=== PATIENT | male | born 1990 | race Caucasian/White ===

== ENCOUNTER 2017-07-18 22:27 | Emergency (ER) | payer SELFPAY ==
[~2017-07-18] VITALS: Ht 165.1 cm; Wt 58.1 kg
[2017-07-18 23:50] VITALS: BP_SYST 134
[2017-07-19 00:49] LABS: HEMATOCRIT 49.7 % (36-54); HEMOGLOBIN 16.7 g/dL (14.0-18.0); LYMPHOCYTES # (AUTO) 1.3 K/uL (1.0-5.5); MEAN CORPUSCULAR HEMOGLOBIN 31 pg (27-31); MEAN CORPUSCULAR HGB CONC 34 % (32-36); MEAN CORPUSCULAR VOLUME 92 fL (79.0-98.0); WHITE BLOOD COUNT (AUTO) 8.8 K/uL (4.8-10.8)
[2017-07-19 00:59] LABS: ANION GAP 10 (5-15); BASOPHILS # (AUTO) 0.1 K/uL (0.0-0.2); BASOPHILS % (AUTO) 1.2 % (0.0-2.0); CHLORIDE 101 mmol/L (98-107); CREATININE 0.87 mg/dL (0.55-1.30); EOSINOPHILS # (AUTO) 0.1 K/uL (0.0-0.4); EOSINOPHILS % (AUTO) 0.6 % (0.0-4.0); GFR AFRICAN AMERICAN 138 mL/min (>90); GLUCOSE 105 mg/dL (70-99); LYMPHOCYTES % (AUTO) 14.8 % (20.5-51.5); MONOCYTES # (AUTO) 0.7 K/uL (0.0-1.0); MONOCYTES % (AUTO) 8.5 % (1.7-9.3); NEUTROPHILS # (AUTO) 6.6 K/uL (1.8-7.7); NEUTROPHILS % (AUTO) 74.9 % (40.0-70.0); POTASSIUM 3.6 mmol/L (3.5-5.1); RED BLOOD CELL COUNT(AUTO) 5.39 MIL/uL (4.2-6.2); SODIUM SERUM 138 mmol/L (136-145); UREA NITROGEN, BLOOD 11 mg/dL (8-21)
[2017-07-19 01:03] LABS: ALANINE AMINOTRANSFERASE 32 U/L (12-78); ALBUMIN 4.8 g/dL (3.4-4.8); ASPARTATE AMINOTRANSFERASE 22 U/L (10-37); TOTAL BILIRUBIN 0.6 mg/dL (0.0-1.0)
[2017-07-19 01:06] LABS: ALCOHOL, BLOOD < 3 mg/dL (<10)
[2017-07-19 01:22] LABS: PLATELET COUNT (AUTO) 311 K/uL (130-430)
== END 2017-07-19 02:15 | disposition left against medical advice (07) ==
LOC: SED 22:27
DX: R40.4 Transient alteration of awareness (principal); F17.200 Nicotine dependence, unspecified, uncomplicated; Z53.20 Procedure and treatment not carried out because of patient's decision for unspecified reasons
CPT/HCPCS: 36415; 80053; 85025; 99284; G0482

== ENCOUNTER 2018-10-16 13:35 | Emergency (ER) | payer MEDICAID ==
[~2018-10-16] VITALS: Ht 165.1 cm; Wt 59.0 kg
[2018-10-16 13:57] VITALS: BP_SYST 118
[2018-10-16 15:03] VITALS: BP_SYST 123
== END 2018-10-16 15:08 | disposition home or self-care (01) ==
LOC: SED 13:35
DX: J20.9 Acute bronchitis, unspecified (principal); F17.210 Nicotine dependence, cigarettes, uncomplicated; Z71.6 Tobacco abuse counseling
CPT/HCPCS: 71045; 99283

== ENCOUNTER 2019-11-24 15:06 | Emergency (ER) | payer MEDICAID ==
[~2019-11-24] VITALS: Ht 165.1 cm; Wt 68.0 kg
[2019-11-24 15:14] VITALS: BP_SYST 145
[2019-11-24 15:35] VITALS: BP_SYST 138
== END 2019-11-24 15:35 | disposition home or self-care (01) ==
LOC: SED 15:06
DX: Z00.00 Encounter for general adult medical examination without abnormal findings (principal); R44.0 Auditory hallucinations; R03.0 Elevated blood-pressure reading, without diagnosis of hypertension
CPT/HCPCS: 99281

== ENCOUNTER 2020-02-23 19:43 | Emergency (ER) | payer MEDICAID ==
[~2020-02-23] VITALS: Ht 165.1 cm; Wt 59.9 kg
[2020-02-23 20:32] VITALS: BP_SYST 115
[2020-02-23 22:15] LABS: CALCIUM 8.5 mg/dL (8.4-11.0); CREATININE 1.08 mg/dL (0.55-1.30); POTASSIUM 3.4 mmol/L (3.5-5.1)
[2020-02-23 22:17] LABS: BASOPHILS % (AUTO) 0.8 % (0.0-2.0); EOSINOPHILS # (AUTO) 0.1 K/uL (0.0-0.4); EOSINOPHILS % (AUTO) 1.5 % (0.0-4.0); HEMATOCRIT 46.2 % (36-54); HEMOGLOBIN 15.9 g/dL (14.0-18.0); LYMPHOCYTES # (AUTO) 2.3 K/uL (1.0-5.5); LYMPHOCYTES % (AUTO) 35.5 % (20.5-51.5); MEAN CORPUSCULAR HEMOGLOBIN 31 pg (27-31); MEAN CORPUSCULAR HGB CONC 35 % (32-36); MEAN CORPUSCULAR VOLUME 90 fL (79.0-98.0); MONOCYTES # (AUTO) 0.5 K/uL (0.0-1.0); MONOCYTES % (AUTO) 8.3 % (1.7-9.3); NEUTROPHILS # (AUTO) 3.4 K/uL (1.8-7.7); NEUTROPHILS % (AUTO) 53.9 % (40.0-70.0); PLATELET COUNT (AUTO) 288 K/uL (130-430); RED BLOOD CELL COUNT(AUTO) 5.15 MIL/uL (4.2-6.2); RED CELL DISTRIBUTION WIDTH 12.5 % (9.0-15.0); WHITE BLOOD COUNT (AUTO) 6.4 K/uL (4.8-10.8)
--- NOTE | 2020-02-23 23:47 | NUR ---
[facility] up. Report given to LOPEZ MCWILLIAMS.
--- NOTE | 2020-02-23 23:59 | NUR ---
Patient complains of hearing voices in his head for the last 2 months. Pt states voices are saying to "shut off his brain." Pt denies suicidal ideation or homicidal ideation. Pt reports that he takes gabapentin and two other medications but forgot what they are called. Pt is calm and cooperative in ED. Pt denies pain, N/V, fever. No other injuries/complaints per patient or noted.
--- NOTE | 2020-02-24 00:13 | NUR ---
ER at bedside examining patient.
--- NOTE | 2020-02-24 00:36 | NUR ---
Patient given written and verbal discharge instructions and verbalizes understanding. ER MD discussed with patient the results and treatment provided. Patient in stable condition. ID arm band removed. NO Rx of given. Patient educated on pain management and to follow up with PMD. Pain Scale 2/10. Opportunity for questions provided and answered. Medication side effect fact sheet provided.
[2020-02-24 00:37] VITALS: BP_SYST 110
== END 2020-02-24 00:37 | disposition home or self-care (01) ==
LOC: SED 19:43
DX: M79.18 Myalgia, other site (principal); R44.0 Auditory hallucinations
CPT/HCPCS: 36415; 80048; 82550-TC; 83735-TC; 85025; 99283